=== PATIENT | female | born 1990 | race Caucasian/White ===

== ENCOUNTER → 2019-07-24 12:40 | Outpatient (CLI) | payer OTHER, SELFPAY ==
[2019-07-24 08:47] VITALS: BMI 30.4
[2019-07-28 16:27] LABS: HPV Reflexed? NOT INDICATED
== END ==
PROVIDERS: PCP Internal Medicine; Visit Provider Obstetrics & Gynecology
DX: Z12.4 Encounter for screening for malignant neoplasm of cervix (principal)
CPT/HCPCS: 88175; G0145

== ENCOUNTER → 2020-07-29 12:14 | Outpatient (CLI) | payer OTHER, SELFPAY ==
[2020-07-29 11:42] VITALS: BMI 32.8
[2020-07-29 13:13] LABS: T4 Free Direct 1.04 ng/dL (0.76-1.46); Thyroid Stim Hormone (TSH) 2.58 uIU/mL (0.358-3.74)
== END ==
PROVIDERS: PCP Internal Medicine; Referring Provider Obstetrics & Gynecology; Visit Provider Obstetrics & Gynecology
DX: R53.83 Other fatigue (principal); L65.9 Nonscarring hair loss, unspecified; R63.5 Abnormal weight gain
CPT/HCPCS: 36415; 84439; 84443

== ENCOUNTER → 2023-02-22 | Outpatient (CLI) | payer OTHER, SELFPAY ==
[2023-02-26 06:06] LABS: Chlamydia By Nucleic Acid AMP Negative (Negative); Gonococcus By Nucleic Acid AMP Negative (Negative)
[2023-02-27 08:12] LABS: HPV APTIMA, High Risk Negative (Negative)
== END | disposition home or self-care (01) ==
LOC: LABSPEC 15:24
PROVIDERS: PCP Internal Medicine; Referring Provider Obstetrics & Gynecology; Visit Provider Obstetrics & Gynecology
DX: Z20.2 Contact with and (suspected) exposure to infections with a predominantly sexual mode of transmission (principal); N89.8 Other specified noninflammatory disorders of vagina; Z12.4 Encounter for screening for malignant neoplasm of cervix
CPT/HCPCS: 87070; 87205; 87491; 87591; 87624; 88175; G0145